=== PATIENT | female | born 1945 | race Caucasian/White ===

== ENCOUNTER 2017-04-03 11:06 | Inpatient (IN) | payer MEDICARE, BC ==
[~2017-04-03] VITALS: Ht 165.1 cm; Wt 72.0 kg
[2017-04-03] MEDS ORDERED: SOD CHLORIDE 0.9% 1,000 ML IV STA (11:22)
[2017-04-03] MEDS ORDERED: ONDANSETRON 4 MG INJ IV STA (11:22)
--- NOTE | 2017-04-03 11:50 | ERA ---
ER Documentation Chief Complaint Date/Time DATE: 04/03/17 TIME: 11:35 Chief Complaint SYNCOPE AT THE CLINIC HPI This is a 72-year-old female with a past medical history of multiple cosmetic surgeries in the past, including a breast reduction approximately 1 month ago, previous hysterectomy and appendectomy, hypertension on metoprolol who is presenting with nausea, vomiting, anxiety and multiple episodes of syncope this morning. The patient unfortunately sustained a distal tib-fib fracture last night. She was walking down her steps when she lost her balance and twisted her left ankle. She went to an urgent care last night that confirmed the diagnosis. She was splinted and instructed to follow-up in the orthopedic clinic today. She took 1 dose of Percocet before going to sleep at approximately 1130 last night. She woke up around 4 AM in substantial pain and took a another Percocet at that time. She did not feel nauseated immediately after taking these pills. When she woke up this morning she called the orthopedic clinic who instructed her that it might be difficult to be evaluated today. They ultimately told her that if she were able to, at 9 AM that she could get seen today. This made her very anxious and she became nauseated at that time. She has had multiple episodes of nonbilious nonbloody vomiting. In the waiting room at the orthopedic office, she reportedly had 2-3 syncopal events immediately after retching according to the patient's friend. At that point, an ambulance was called and she was transferred here for further evaluation. The patient was given a dose of oral Zofran during transport. The patient is clammy and still a little lightheaded presently. However, she does not feel that she is going to pass out right now. She denies headache or vision changes. She remains nauseated. She denies chest pain or trouble breathing. She denies abdominal pain. She has no focal deficits. She did take her metoprolol this morning, but she is concerned that she may have thrown it up. ROS All systems reviewed and are negative except as per history of present illness. Medications Home Meds Reported Medications Lactobacillus Combo No.11 (Probiotic) 1 Each Cap.sprink, 1 CAP PO DAILY, CAP 04/03/17 Zolpidem Tartrate* (Ambien*) 5 Mg Tablet, 5 MG PO QHS Y for INSOMNIA, #30 TAB 04/03/17 Metoprolol Tartrate* (Lopressor*) 25 Mg Tablet, 75 MG PO BID, #180 TAB 04/03/17 Allergies Allergies: Coded Allergies: No Known Allergy (Unverified , 04/03/17) PMhx/Soc History of Surgery: No (Face lift, Breast Reduction, RACQUEL) Anesthesia Reaction: No Hx Neurological Disorder: No Hx Respiratory Disorders: No Hx Cardiac Disorders: Yes (HypertensionHTN) Hx Psychiatric Problems: No Hx Miscellaneous Medical Probl: No FmHx Family History: No coronary disease, No diabetes Physical Exam Vitals Vital Signs Date Time Temp Pulse Resp B/P Pulse Ox O2 Delivery O2 Flow Rate FiO2 04/03/17 16:25 98.6 64 16 146/67 04/03/17 14:00 98.4 58 17 135/68 04/03/17 11:16 98.0 86 18 166/77 96 Physical Exam Const: NAD, Clammy/diaphoretic Head: Atraumatic Eyes: Normal Conjunctiva ENT: Normal External Ears, Nose and Mouth. Neck: Full range of motion.~ No meningismus. Resp: Clear to auscultation bilaterally Cardio: Regular rhythm, significant bradycardia, no murmurs Abd: Soft, non tender, non distended. Normal bowel sounds Skin: No petechiae or rashes Back: No midline or flank tenderness Ext: No cyanosis, or edema Neur: Awake and alert Psych: Normal Mood and Affect Result Diagram: 04/03/17 1145 04/03/17 1130 Results 24 hrs Laboratory Tests Test 04/03/17 11:30 04/03/17 11:45 04/03/17 11:46 04/03/17 15:45 Prothrombin Time 12.1Sec Prothrombin Time Ratio 0.9 INR International Normalized Ratio 0.90 Activated Partial Thromboplast Time 25.2Sec D-Dimer 956.20ng/ml D-Dimer Comment Sodium Level 134mmol/L Potassium Level 4.4mmol/L Chloride Level 90mmol/L Carbon Dioxide Level 24mmol/L Anion Gap 24 Blood Urea Nitrogen 14mg/dl Creatinine 0.74mg/dl Glucose Level 167mg/dl Calcium Level 10.0mg/dl Troponin I 0.013ng/ml 0.012ng/ml White Blood Count 8.510^3/ul Red Blood Count 3.6710^6/ul Hemoglobin 11.6g/dl Hematocrit 33.6% Mean Corpuscular Volume 91.6fl Mean Corpuscular Hemoglobin 31.6pg Mean Corpuscular Hemoglobin Concent 34.5g/dl Red Cell Distribution Width 12.3% Platelet Count 73137^3/UL Mean Platelet Volume 11.6fl Neutrophils % 80.7% Lymphocytes % 9.7% Monocytes % 8.1% Eosinophils % 0.7% Basophils % 0.6% Nucleated Red Blood Cells % 0.0/100WBC Neutrophils # 6.810^3/ul Lymphocytes # 0.810^3/ul Monocytes # 0.710^3/ul Eosinophils # 0.110^3/ul Basophils # 0.110^3/ul Nucleated Red Blood Cells # 0.010^3/ul Bedside Glucose 120mg/dL Creatine Kinase 59IU/L Creatinine Kinase MB (Mass) 0.62ng/ml Current Medications Medications (Trade) Dose Ordered Sig/Lisa Route PRN Reason Start Time Stop Time Status Last Admin Dose Admin Sodium Chloride (NS) 1,000 ml @ 1,000 mls/hr Q1H STAT IV 04/03/17 11:22 04/03/17 12:21 DC 04/03/17 12:11 Ondansetron HCl (Zofran Inj) 4 mg ONCE STAT IV 04/03/17 11:22 04/03/17 11:25 DC 04/03/17 11:45 Metoclopramide HCl (Reglan) 10 mg ONCE ONCE IV 04/03/17 13:00 04/03/17 13:01 DC 04/03/17 12:55 IV Flush 10 ml 10 ml STK-MED ONCE .ROUTE 04/03/17 13:34 04/03/17 13:35 DC 04/03/17 14:17 Sodium Chloride 100 ml @ ud STK-MED ONCE .ROUTE 04/03/17 13:34 04/03/17 13:35 DC 04/03/17 14:18 Iohexol 100 ml @ ud STK-MED ONCE .ROUTE 04/03/17 13:34 04/03/17 13:35 DC 04/03/17 14:17 Sodium Chloride 1,000 ml @ 1,000 mls/hr Q1H ONCE IV 04/03/17 15:30 04/03/17 16:29 DC 04/03/17 15:18 Sodium Chloride (NS) 1,000 ml @ 80 mls/hr [id number] IV 04/03/17 16:56 04/04/17 05:25 04/03/17 17:52 Procedures/MDM The patient is presenting with symptomatic bradycardia and 2-3 episodes of syncope. The patient denies any chest pain or pleuritic chest pain or shortness of breath at this time. However, pulmonary embolism does need to be considered. The patient does describe herself as a significantly anxious person , and reports significant feelings of anxiety with nausea when she was initially told that it may be difficult for her to be evaluated today in the clinic for her recent fracture. Her bradycardia also occurred while she was extremely nauseated. The patient was given IV fluids in the emergency department. She was also given Zofran and Phenergan with improvement of her nausea and ultimately improvement of her bradycardia. She is presently with a heart rate in the 60s. The patient's blood work was obtained and reviewed. The patient has a mild anemia with a hemoglobin of 11.6 that does not need to be emergently treated. The patient does not have leukocytosis or left shift. I do not suspect an infectious etiology. The patient does have a mildly low sodium and chloride, which will be repleted with IV fluids. The rest of the patient's CMP is unremarkable. A d-dimer was sent off to help rule out a pulmonary embolism. Unfortunately it was elevated. The patient's chest x-ray demonstrated clear lungs. There are no signs of pulmonary edema or pleural effusion or pneumonia or pneumothorax. A CTA was completed of the chest that revealed emphysema but no findings of pulmonary embolism. The patient's troponin is not less than 0.012. It is baseline at 0.013. A repeat troponin was completed 4 hours later that was exactly at 0.012. While my suspicion for an acute coronary syndrome is on the lower side, it may be prudent to trend this. EKG read by me: Rate/Rhythm: Regular rhythm, sinus bradycardia at a rate of 57 Intervals: Normal Access: Normal Impression: Bradycardia, no evidence of ischemia The patient's bradycardia got down to the high 30s and low 40s. While it has since improved, the fact that she was significantly bradycardic and syncopized 3 times is very worrisome. The patient will be admitted to the hospital for further evaluation and management. The patient's symptoms have improved, and the patient's vital signs have normalized. Departure Diagnosis: Primary Impression: Symptomatic sinus bradycardia Additional Impressions: Syncope Qualified Code: R55 - Syncope, unspecified syncope type Nausea & vomiting Qualified Code: R11.2 - Nausea and vomiting, intractability of vomiting not specified, unspecified vomiting type Condition: JASPAL Clemente MD Apr 03, 2017 11:48 Syncope Qualified Code: R55 - Syncope, unspecified syncope type Nausea & vomiting Qualified Code: R11.2 - Nausea and vomiting, intractability of vomiting not specified, unspecified vomiting type Condition: JASPAL Clemente MD Apr 03, 2017 11:48
[2017-04-03 12:12] LABS: BASOPHIL # 0.1 10^3/ul (0.0-0.1); BASOPHILS % 0.6 % (0.0-2.0); EOSINOPHILS # 0.1 10^3/ul (0.0-0.5); EOSINOPHILS % 0.7 % (0.0-7.0); HEMATOCRIT 33.6 % (37.0-47.0); HEMOGLOBIN 11.6 g/dl (12.0-16.0); LYMPHOCYTES # 0.8 10^3/ul (0.8-2.9); LYMPHOCYTES % 9.7 % (15.0-51.0); MEAN CORPUSCULAR HEMOGLOBIN 31.6 pg (29.0-33.0); MEAN CORPUSCULAR HGB CONC 34.5 g/dl (32.0-37.0); MEAN CORPUSCULAR VOLUME 91.6 fl (82.0-101.0); MEAN PLATELET VOLUME 11.6 fl (7.4-10.4); MONOCYTE # 0.7 10^3/ul (0.3-0.9); MONOCYTES % 8.1 % (0.0-11.0); NEUTROPHIL # 6.8 10^3/ul (1.6-7.5); NEUTROPHILS % 80.7 % (39.0-77.0); PLATELET COUNT 226 10^3/UL (140-415); RED BLOOD COUNT 3.67 10^6/ul (4.20-5.40); RED CELL DISTRIBUTION WIDTH 12.3 % (11.5-14.5); WHITE BLOOD COUNT 8.5 10^3/ul (4.8-10.8)
--- NOTE | 2017-04-03 12:17 | RADRPT ---
PROCEDURE: XR Chest 1 View. CLINICAL INDICATION: Chest pain TECHNIQUE: AP view of the chest was obtained. COMPARISON: None. FINDINGS: The heart size is within normal limits. Calcified atherosclerosis is noted in the aorta. No consol idations are identified. No pneumothorax is seen. Osseous structures are intact. IMPRESSION: Calcified atherosclerosis in the aorta. Clear lungs. RPTAT: AA .Timbo Howe MD, Date Time Electronically viewed and signed by .Timbo Howe MD, on 04/03/2017 12:17 .P/
[2017-04-03 12:28] LABS: INR 0.9; PARTIAL THROMBOPLASTIN TIME 25.2 Sec (25.0-35.0); PROTIME 12.1 Sec (12.2-14.2); PT RATIO 0.9
[2017-04-03 12:32] LABS: CREATININE 0.74 mg/dl (0.44-1.00); POTASSIUM 4.4 mmol/L (3.5-5.1)
[2017-04-03 12:34] LABS: D-DIMER 956.2 ng/ml (<460)
[2017-04-03] MEDS ORDERED: METO25TA4 PO (12:34)
[2017-04-03] MEDS ORDERED: ZOLP5TAB PO (12:35)
[2017-04-03] MEDS ORDERED: LACT1CAP56 PO (12:36)
[2017-04-03 12:43] LABS: TROPONIN-I 0.013 ng/ml (0.00-0.12)
[2017-04-03] MEDS ORDERED: METOCLOPRAMIDE 10 MG INJ IV ONE (13:00)
[2017-04-03] MEDS ORDERED: IOHEXOL 100 ML ONE (13:34)
[2017-04-03] MEDS ORDERED: SOD CHLORIDE 0.9% 100 ML ONE (13:34)
--- NOTE | 2017-04-03 14:39 | RADRPT ---
PROCEDURE: CT Pulmonary Angiogram. CLINICAL INDICATION: Chest pain and shortness of breath. Syncope. Ankle fracture yesterday and br east reduction surgery 1 month ago. TECHNIQUE: CT pulmonary angiogram and a CT scan of the chest with contrast was performed. The pat ient was scanned following the uncomplicated intravenous administration of 100 cc of Omnipaque-350 i ntravenous contrast. 2-D coronal reformatted images were obtained from the axial source images. In addition, 3-D post processing was performed. Total exam DLP is 319.32 mGy-cm. CTDIvol is 25.35 mG y. One or more of the following dose reduction techniques were used: Automated exposure control, ad justment of the mA and/or kV according to patient size, use of iterative reconstruction technique. COMPARISON: None available. FINDINGS: The pulmonary arteries are normal with no filling defect or lack of enhancement to suggest pulmonary artery embolism. This is and is changes are present bilaterally with upper lung zone predominance consistent with khurram trilobular emphysema. Right is worse than left. There is no pulmonary nodule or mass lesion. There is no pneumothorax. There is no mediastinal or hilar lymphadenopathy or mass. There is no pleural effusion. There is no pericardial effusion. There is calcification in the aorta consistent with atherosclerosis. The thoracic aorta is otherwis e normal with no aneurysm or dissection. Images through the upper abdomen demonstrate normal visualized portions of the liver, spleen, and ad renals. The osseous structures are normal with no fracture or lytic lesion. IMPRESSION: 1. Centrilobular emphysema with right worse than left. 2. Atherosclerosis. 3. Normal pulmonary arteries with no evidence of pulmonary artery embolism. 4. Otherwise normal CT scan of the chest. RPTAT: QQ .Peterson Patel MD, MD Date Time Electronically viewed and signed by .Peterson Patel MD, on 04/03/2017 14:39 .R/
[2017-04-03] MEDS ORDERED: SOD CHLORIDE 0.9% 1,000 ML IV ONE (15:30)
[2017-04-03] MEDS ORDERED: SOD CHLORIDE 0.9% 1,000 ML IV SCH (16:56)
[2017-04-03] MEDS ORDERED: ONDANSETRON 4 MG INJ IV PRN (17:00)
[2017-04-03] MEDS ORDERED: ACETAMINOPHEN 325 MG TAB PO PRN (17:00)
[2017-04-03 17:59] LABS: CK-MB 0.62 ng/ml (0.0-2.4)
[2017-04-03 18:15] VITALS: TEMP 98.6
--- NOTE | 2017-04-03 19:56 | HP ---
Date/Time of Note Date/Time of Note DATE: 04/03/17 TIME: 19:48 Assessment/Plan VTE Prophylaxis VTE Prophylaxis Intervention: LMWH Lines/Catheters IV Catheter Type (from Nrs): [employer] line still needed: No Urinary Cath still in place: No Assessment/Plan Chief Complaint/Hosp Course 72 yo female [facility] h/o paroxysmal A Fib, traumatic leg fracture yesterday who presents after syncope today - History clearly concerning for PE but this is excluded with CT-angio - Most likley this was a vasovagal event precipitated by anxiety/stress of doctors office in setting of low PO intake that day, opaites for pain control and still taking metoprolol 75 - Bradycardia resolved, will check TSH regardless - Will hold metoprolol, i would suggest perrmanently, but I defer to her outside physicians - Tachy/verenice a possibilty but seems unilkely given other clear explanation. Regardless, will observe on telemetry overnight - EKG suggests biatrial enlargement but no arrythmia. Will check TTE tomorrow Problems: HPI/ROS Admit Date/Time Admit Date/Time Apr 03, 2017 at 16:58 Hx of Present Illness 72 yo female with h/o paroxysmal A Fib, recent leg fracture who presents with syncope [place] [facility] [place] She had a mechanical fall down 3 stairs resulting in tibia fracture. Has been taking percocet intermittently since then. Had nothing to eat today. Went to her outpatient orthopedics office [facility] from [facility]. [place] very nervious/anxious. Began to feel nausea, then vomited, and syncopized. Had no chest symptoms. Remained woozy. Then sycnopzied again in the chair. Brought here. Found to be sinus bradycardic to 40s which resolved. Has been told she has a low heart rate before. Despite this takes metoprolol 75 BID for paroxysmal A Fib. Never previous syncope aside from very remotely when she was . Never angina. Excellent exercise tolerance. CUrrently feels well, no complaints. ROS Paroxsysmal A Fib Recent breast reduction surgery Tib/fib fracture yesterday PMH/Family/Social Social History Smoking Status: Never smoker Exam/Review of Systems Vital Signs Vitals Vital Signs Date Time Temp Pulse Resp B/P Pulse Ox O2 Delivery O2 Flow Rate FiO2 04/03/17 18:15 98.6 70 17 150/73 100 Exam Exam WEll appearing femal, resting comfortably in NAD RRR, no m/r/g, flat neck veins Lungs clear b/l Abdomen soft nt nt Ext: RLE with cast/wrapping s/p fracture, no edema Labs Result Diagram: 04/03/17 1145 04/03/17 1130 Medications Medications Current Medications Sodium Chloride (NS) 1,000 ml @ 80 mls/hr [id number] IV Last administered on t 17:52; Admin Dose 80 MLS/HR; Start 04/03/17 at 16:56; Stop 04/04/17 at 05:25 TATUM ADAMS MD Apr 03, 2017 19:55
[2017-04-03 20:00] VITALS: BP 171/74; RESP 19
[2017-04-03] MEDS ORDERED: HYDROCODONE/APAP (5/325) TAB PO PRN (20:00)
[2017-04-03] MEDS ORDERED: ZOLPIDEM 5 MG TAB PO PRN (20:00)
[2017-04-03 20:11] VITALS: Ht 165.1 cm; Wt 72.0 kg
[2017-04-03 20:22] VITALS: PULSE 66
[2017-04-03] MEDS ORDERED: AMLODIPINE 5 MG TAB PO SCH (21:00)
[2017-04-03 23:59] VITALS: PULSE 47
[2017-04-04] VITALS (8 sets, daily range): BP systolic 112–152; BP diastolic 54–80; PULSE 58–67; RESP 17–18
[2017-04-04 00:05] LABS: CREATINE KINASE 51 IU/L (23-200)
[2017-04-04 00:23] LABS: TROPONIN-I < 0.012 ng/ml (0.00-0.12)
[2017-04-04 08:00] LABS: WHITE BLOOD COUNT 7.6 10^3/ul (4.8-10.8)
[2017-04-04 08:01] LABS: BASOPHIL # 0.1 10^3/ul (0.0-0.1); BASOPHILS % 1.3 % (0.0-2.0); EOSINOPHILS # 0.1 10^3/ul (0.0-0.5); EOSINOPHILS % 1.7 % (0.0-7.0); HEMATOCRIT 38.2 % (37.0-47.0); HEMOGLOBIN 13.1 g/dl (12.0-16.0); LYMPHOCYTES # 1.6 10^3/ul (0.8-2.9); LYMPHOCYTES % 21.3 % (15.0-51.0); MEAN CORPUSCULAR HEMOGLOBIN 31.1 pg (29.0-33.0); MEAN CORPUSCULAR HGB CONC 34.3 g/dl (32.0-37.0); MEAN CORPUSCULAR VOLUME 90.7 fl (82.0-101.0); MEAN PLATELET VOLUME 11.1 fl (7.4-10.4); MONOCYTES % 13.4 % (0.0-11.0); NEUTROPHIL # 4.7 10^3/ul (1.6-7.5); NEUTROPHILS % 61.9 % (39.0-77.0); PLATELET COUNT 251 10^3/UL (140-415); RED BLOOD COUNT 4.21 10^6/ul (4.20-5.40); RED CELL DISTRIBUTION WIDTH 12.7 % (11.5-14.5)
[2017-04-04 08:25] LABS: ALBUMIN 3.5 g/dl (3.3-4.9); ALBUMIN/GLOBULIN RATIO 1.25; BILIRUBIN,INDIRECT 0.5 mg/dl (0-1.1); BILIRUBIN,TOTAL 0.5 mg/dl (0.2-1.3); CALCIUM 8.8 mg/dl (8.4-10.2); CREATININE 0.68 mg/dl (0.44-1.00); POTASSIUM 3.6 mmol/L (3.5-5.1); TOTAL PROTEIN 6.3 g/dl (6.1-8.1)
[2017-04-04 08:57] LABS: THYROID STIMULATING HORMONE 3.05 MIU/L (0.465-4.680)
--- NOTE | 2017-04-04 13:30 | PDOCDIS ---
Discharge Instructions CONDITION Patient Condition: Good HOME CARE INSTRUCTIONS: Diet Instructions: Regular ACTIVITY: Activity Restrictions: No Restrictions FOLLOW UP/APPOINTMENTS Follow-up Plan Please follow up with your educational assistant teacher and primary care doctor for further care TATUM ADAMS MD Apr 04, 2017 13:30
--- NOTE | 2017-04-04 14:03 | DS ---
Date/Time of Note Date/Time of Note DATE: 04/04/17 TIME: 14:02 Discharge Summary Admission/Discharge Info Admit Date/Time Apr 03, 2017 at 16:58 Discharge Date/Time Patient Condition: Good Procedures TTE Hx of Present Illness 72 yo female with h/o paroxysmal A Fib, recent leg fracture who presents with syncope [place] [facility] [place] She had a mechanical fall down 3 stairs resulting in tibia fracture. Has been taking percocet intermittently since then. Had nothing to eat today. Went to her outpatient orthopedics office [facility] from [facility] [place] very nervious/anxious. Began to feel nausea, then vomited, and syncopized. Had no chest symptoms. Remained woozy. Then sycnopzied again in the chair. Brought here. Found to be sinus bradycardic to 40s which resolved. Has been told she has a low heart rate before. Despite this takes metoprolol 75 BID for paroxysmal A Fib. Never previous syncope aside from very remotely when she was . Never angina. Excellent exercise tolerance. CUrrently feels well, no complaints. Hospital Course 72 yo female wt h/o paroxysmal A Fib, traumatic leg fracture yesterday who presents after syncope today patient was montiored no telemetry. She had bradycardia throughout but aysmptoamtic. Her metoprolol was held but she admitted to taking her own home supply. She underwent TTE with results pendign at time of discharge, did not want to stay for formal read. She will follow up with her outpatient head of acquisitions and primary care doctor. Home Meds Reported Medications Lactobacillus Combo No.11 (Probiotic) 1 Each Cap.sprink, 1 CAP PO DAILY, CAP 04/03/17 Zolpidem Tartrate* (Ambien*) 5 Mg Tablet, 5 MG PO QHS Y for INSOMNIA, #30 TAB 04/03/17 Discontinued Reported Medications Metoprolol Tartrate* (Lopressor*) 25 Mg Tablet, 75 MG PO BID, #180 TAB 04/03/17 Primary Care Provider Nelson Stewart Time spent on discharge: > 30 minutes Pending Labs Laboratory Tests Test 04/03/17 15:45 04/03/17 23:35 04/04/17 07:21 Creatine Kinase 59IU/L (23-200) 51IU/L (23-200) Creatinine Kinase MB (Mass) 0.62ng/ml (0.0-2.4) 0.50ng/ml (0.0-2.4) Troponin I 0.012ng/ml (0.00-0.12) < 0.012ng/ml (0.00-0.12) Creatine Kinase Index 1.0 White Blood Count 7.610^3/ul (4.8-10.8) Red Blood Count 4.2110^6/ul (4.20-5.40) Hemoglobin 13.1g/dl (12.0-16.0) Hematocrit 38.2% (37.0-47.0) Mean Corpuscular Volume 90.7fl (82.0-101.0) Mean Corpuscular Hemoglobin 31.1pg (29.0-33.0) Mean Corpuscular Hemoglobin Concent 34.3g/dl (32.0-37.0) Red Cell Distribution Width 12.7% (11.5-14.5) Platelet Count 67896^3/UL (140-415) Mean Platelet Volume 11.1fl (7.4-10.4) Neutrophils % 61.9% (39.0-77.0) Lymphocytes % 21.3% (15.0-51.0) Monocytes % 13.4% (0.0-11.0) Eosinophils % 1.7% (0.0-7.0) Basophils % 1.3% (0.0-2.0) Nucleated Red Blood Cells % 0.0/100WBC (0.0-0.0) Neutrophils # 4.710^3/ul (1.6-7.5) Lymphocytes # 1.610^3/ul (0.8-2.9) Monocytes # 1.010^3/ul (0.3-0.9) Eosinophils # 0.110^3/ul (0.0-0.5) Basophils # 0.110^3/ul (0.0-0.1) Nucleated Red Blood Cells # 0.010^3/ul (0.0-0.0) Sodium Level 134mmol/L (135-144) Potassium Level 3.6mmol/L (3.5-5.1) Chloride Level 96mmol/L (97-110) Carbon Dioxide Level 25mmol/L (21-31) Anion Gap 17 (8-16) Blood Urea Nitrogen 8mg/dl (7-20) Creatinine 0.68mg/dl (0.44-1.00) Glucose Level 97mg/dl (70-220) Calcium Level 8.8mg/dl (8.4-10.2) Total Bilirubin 0.5mg/dl (0.2-1.3) Direct Bilirubin 0.00mg/dl (0.00-0.20) Indirect Bilirubin 0.5mg/dl (0-1.1) Aspartate Amino Transf (AST/SGOT) 23IU/L (15-46) Alanine Aminotransferase (ALT/SGPT) 37IU/L (13-69) Alkaline Phosphatase 57IU/L (42-121) Total Protein 6.3g/dl (6.1-8.1) Albumin 3.5g/dl (3.3-4.9) Globulin 2.80g/dl (1.3-3.2) Albumin/Globulin Ratio 1.25 Thyroid Stimulating Hormone (TSH) 3.050MIU/L (0.465-4.680) TATUM ADAMS MD Apr 04, 2017 14:03
--- NOTE | 2017-04-06 21:24 | RADRPT ---
Echocardiogram Report Patient Name: RANDELL ZHANG Gender: Female Date: 1945 Study Date: 04-Apr-2017 Tenant Selector: Muna Malagon [facility] Location: [facility] Ref. Physician: TATUM ADAMS Quality: Adequate Procedures: Transthoracic echocardiogram with complete 2D, M-Mode, and doppler examination. Indications: Bradycardia, syncope, mild trop. 2D/M Mode Doppler Measurement Value Normal Ranges Measurement Value Normal Ranges LVIDd 2D 4.0 3.5 - 5.6 cm AV Peak Kenneth 1.2 m/sec LVIDs 2D 2.3 2.1 - 4.1 cm AV Peak PG 5.4 mmHg LVPWd 2D 0.8 0.6 - 1.1 cm LVOT Peak Kenneth 0.9 m/sec IVSd 2D 1.0 0.6 - 1.1 cm LVOT Peak PG 3.2 mmHg AoR Diam 2D 2.5 2.0 - 3.7 cm MV E Peak Kenneth 0.7 m/sec EDV 2D 70.4 cm3 MV A Peak Kenneth 0.9 m/sec ESV 2D 12.6 cm3 MV E/A 0.8 LA Dimen 2D 3.2 2.3 - 4.0 cm MV Decel Time 185 msec MV Decel [place] 4 MV E/A 0.8 TR Peak Kenneth 2.9 m/sec TR Peak PG 32.5 mmHg RVSP 36.0 mmHg Findings Left Ventricle: Normal left ventricular systolic function. Normal left ventricular cavity size. Normal left ventricular wall thickness. Ejection fraction is visually estimated at 6065 %. Right Ventricle: Normal right ventricular size. Normal right ventricular systolic function. Left Atrium: The left atrium is normal in size. Right Atrium: The right atrium is normal in size. Mitral Valve: Normal appearance and function of the mitral valve with trace physiologic regurgitation. Aortic Valve: Normal appearance of the aortic valve. No significant aortic stenosis or insufficiency. Tricuspid Valve: Normal appearance of the tricuspid valve. Estimated peak PA systolic pressure 36 mmHg. There is mild tricuspid regurgitation. Pulmonic Valve: Pulmonic valve not well visualized. Pericardium: Normal pericardium with no significant pericardial effusion. Aorta: Normal aortic root. IVC: Normal size and normal respiratory collapse consistent with normal right atrial pressure. Conclusions 1.The left ventricle is normal in size and systolic function. 2.Estimated left ventricular ejection fraction of 60-65%. Electronically Signed By: Darwin Shetty 06-Apr-2017 21:24:10 -0700 Patient Name: RANDELL ZHANG Study Date: 04-Apr-[id number]
== END 2017-04-04 14:40 | disposition home or self-care (01) | DRG 310 ==
LOC: E/R 11:06 → TEL 16:58
PROVIDERS: ADMIT Internal Medicine; ATTEND Internal Medicine
DX: R00.1 Bradycardia, unspecified (principal); R55 Syncope and collapse; R11.2 Nausea with vomiting, unspecified; I48.91 Unspecified atrial fibrillation
CPT/HCPCS: 71010; 71275; 80048; 80053; 82550; 82553; 82962; 84443; 84484; 85025; 85378; 85610; 85730; 93005; 93306; J2765; J7030; Q9967